=== PATIENT | female | born 1960 | race African-American/Black ===

== ENCOUNTER 2017-08-05 21:47 | Emergency (ER) | payer SELFPAY ==
[~2017-08-05] VITALS: Ht 175.3 cm; Wt 93.0 kg
[2017-08-05 22:15] VITALS: BP 137/79
[2017-08-05] MEDS ORDERED: IBUPROFEN600 MG ORAL (22:53)
[2017-08-05] MEDS ORDERED: ROBAXIN-750750 MG PO (22:53)
[2017-08-05 23:50] VITALS: BP 122/81
[2017-08-05 23:53] VITALS: BP 122/81
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
== END 2017-08-05 23:53 | disposition home or self-care (01) ==
LOC: EMR 23:20
DX: M54.2 Cervicalgia (principal); V43.52XA Car driver injured in collision with other type car in traffic accident, initial encounter; Y92.410 Unspecified street and highway as the place of occurrence of the external cause
CPT/HCPCS: 72040; 99283

== ENCOUNTER 2018-05-26 07:59 | Emergency (ER) | payer OTHER ==
[~2018-05-26] VITALS: Ht 175.3 cm; Wt 86.2 kg
[~2018-05-26 07:59] MED LIST: IBUPROFEN600 MG ORAL; ROBAXIN-750750 MG PO
[2018-05-26] MEDS ORDERED: Tetanus/Diptheria/Pertussis Vaccine 0.5ml Syr IM ONE (08:15)
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
[2018-05-26 08:20] VITALS: BP 157/83
--- NOTE | 2018-05-26 09:05 | Diagnostic Imaging Report ---
Indications: Fell, struck right side of face, pain and swelling to the right side of the face Technique: Spiral images obtained through the facial bones. No IV contrast utilized. Multiplanar reconstructions were generated.Total dose length product 568.98 mGycm. CTDIvol(s) 28.19 mGy. Dose reduction achieved using automated exposure control Comparison: none Findings: There is slight increased attenuation and edema of the right malar region subcutaneous fat. No acute fractures. No worrisome sinus opacification. Intact dentition other than evidence of a few prior tooth extractions. There is minimal dependent mucosal thickening within the maxillary sinuses bilaterally. The optic globes are intact. The included intracranial structures are unremarkable. Impression: Evidence of right malar region soft tissue injury. No evidence of acute bony trauma The CT scanner at [facility] is accredited by the [employer] and the scans are performed using protocols designed to limit radiation exposure to as low as reasonably achievable to attain images of sufficient resolution adequate for diagnostic evaluation.
[2018-05-26] MEDS ORDERED: IBUPROFEN600 MG ORAL (09:07)
[2018-05-26 09:18] VITALS: BP 151/80
== END 2018-05-26 09:20 | disposition home or self-care (01) ==
LOC: EMR 08:27
DX: S00.83XA Contusion of other part of head, initial encounter (principal); S00.511A Abrasion of lip, initial encounter; W19.XXXA Unspecified fall, initial encounter; Y92.199 Unspecified place in other specified residential institution as the place of occurrence of the external cause; Y99.0 Civilian activity done for income or pay; Z23 Encounter for immunization
CPT/HCPCS: 70486; 90471; 90715; 99284